=== PATIENT | male | born 1960 | race Caucasian/White ===

== ENCOUNTER 2021-06-20 10:34 | Outpatient (CLI) | payer OTHER ==
[2021-06-20 12:03] LABS: #Basophils 0.1 10x3/uL (0.0-0.2); #Eosinphils 0.2 10x3/uL (0.0-0.5); #Monocytes 0.5 10x3/uL (0.0-1.1); #Neutrophils 5.6 10x3/uL (1.5-8.4); %Basophils 0.6 % (0.0-2.0); %Eosinophils 2.2 % (0.0-6.0); %Lymphocytes 22.6 % (18.0-47.0); %Monocytes 6.5 % (0.0-10.0); %Neutrophils 67.9 % (40.0-75.0); Hemoglobin 13.9 g/dL (13.5-17.5); Mean Corpuscular HGB CONC 32.8 g/dL (32.0-36.0); Mean Corpuscular Hemoglobin 30.7 pg (27.0-33.0); Mean Corpuscular Volume 93.6 fl (81.2-95.1); Platelet Count 230 10x3/uL (150-450); RBC Distribution Width 13.8 % (11.5-14.5); Red Blood Cell (RBC) Count 4.53 10x6/uL (4.32-5.72); White Blood Cell (WBC) Count 8.3 10x3/uL (3.5-10.5)
[2021-06-20 12:26] LABS: ALT (SGPT) 28 U/L (8-55); AST (SGOT) 22 U/L (5-34); Alkaline Phosphatase 72 U/L (40-110); Anion Gap 12 mmol/L (10-20); BUN (Urea Nitrogen) 14 mg/dL (8.4-25.7); Bilirubin, Total 0.8 mg/dL (0.2-1.2); Calc. Creatinine Clearance 0 mL/min (70-130); Calcium 8.8 mg/dL (7.8-10.44); Carbon Dioxide 25 mmol/L (23-31); Chloride 108 mmol/L (98-107); Globulin 2.7 g/dL (2.4-3.5); Glucose 97 mg/dL (80-115); Potassium 4.4 mmol/L (3.5-5.1); Protein, Total 6.7 g/dL (5.8-8.1); Sodium 141 mmol/L (136-145)
[2021-06-21] LABS: SARS-CoV-2 PCR by NAA Not Detected (NotDetected)
== END 2021-06-20 10:35 | disposition home or self-care (01) ==
LOC: LABBT 10:34
PROVIDERS: ATTEND Internal Medicine Cardiovascular Disease
DX: Z01.812 Encounter for preprocedural laboratory examination (principal); R94.39 Abnormal result of other cardiovascular function study; Z20.822 Contact with and (suspected) exposure to COVID-19
CPT/HCPCS: 80053; 85025; U0003; U0005

== ENCOUNTER 2021-06-27 10:45 | Outpatient (CLI) | payer OTHER ==
[2021-06-27 20:20] LABS: SARS-CoV-2 PCR by NAA Not Detected (NotDetected)
== END 2021-06-27 10:46 | disposition home or self-care (01) ==
LOC: LABBT 10:45
PROVIDERS: ATTEND Internal Medicine Cardiovascular Disease
DX: Z01.812 Encounter for preprocedural laboratory examination (principal); R94.39 Abnormal result of other cardiovascular function study; Z20.822 Contact with and (suspected) exposure to COVID-19
CPT/HCPCS: U0003; U0005

== ENCOUNTER 2021-07-02 06:28 | Inpatient (IN) | payer OTHER ==
[2021-07-02] MEDS ORDERED: Lidocaine 1% (PF) 30 ML VIAL ONE (08:28)
[2021-07-02] MEDS ORDERED: Fentanyl 250 MCG/5 ML VIAL ONE (08:44)
[2021-07-02] MEDS ORDERED: Midazolam HCl 2 mg/2 ml Vial ONE (08:44)
[2021-07-02] MEDS ORDERED: Iopamidol 370 76% 100 ML VIAL ONE (09:02)
[2021-07-02] MEDS ORDERED: Loratadine 10 MG TAB PO PRN (13:44)
[2021-07-02] MEDS ORDERED: Acetaminophen/Codeine 30-300mg Tablet PO PRN ×2 (14:45)
[2021-07-02] MEDS ORDERED: Sodium Chloride 0.9% 1,000 ML IV SCH (14:45)
[2021-07-02] MEDS ORDERED: Nitroglycerin 0.4 MG TAB (25 Tab Bottle) SL PRN (14:45)
[2021-07-02] MEDS ORDERED: Communication Order-Pharmacy FS SCH (17:48)
[2021-07-02] MEDS ORDERED: Atorvastatin Calcium 20 MG TAB PO SCH (21:00)
[2021-07-02] MEDS ORDERED: Ezetimibe 10 MG TAB PO SCH (21:00)
[2021-07-02] MEDS ORDERED: Losartan 25 MG TAB PO SCH (21:00)
[2021-07-02] MEDS ORDERED: Aspirin 81 mg Enteric Coated Tablet PO SCH (21:00)
[2021-07-02] MEDS ORDERED: rOPINIRole HCl 0.25 MG TAB PO SCH (21:00)
[2021-07-03 00:24] LABS: SARS-CoV-2 NAA Rapid Test Not Detected (NotDetected)
[2021-07-03] MEDS ORDERED: Lidocaine 1% MPF 2 ML VIAL ONE (08:48)
[2021-07-03] MEDS ORDERED: Albumin 5% 0 ML ONE (08:49)
[2021-07-03] MEDS ORDERED: Heparin 10,000 UNITS/1 ML VIAL 30,000 UNITS in Sodium Chloride 0.9% 1,000 ML FS SCH (09:00)
[2021-07-03] MEDS ORDERED: Lidocaine 2% PF 5 ML VIAL ONE (09:16)
[2021-07-03] MEDS ORDERED: Midazolam HCl 5 mg/5 ml Vial ONE (09:38)
[2021-07-03] MEDS ORDERED: Fentanyl 250 MCG/5 ML VIAL ONE (09:38)
[2021-07-03] MEDS ORDERED: Dexmedetomidine 200 MCG/2 ML VIAL ONE (09:38)
[2021-07-03] MEDS ORDERED: ceFAZolin 2 GM/Dextrose 50 ML IVPB ONE (09:55)
[2021-07-03 10:00] LABS: #Basophils 0.1 thou/uL (0.0-0.2); #Eosinphils 0.1 thou/uL (0.0-0.7); #Lymphocytes 1.7 thou/uL (1.20-3.40); #Monocytes 0.5 thou/uL (0.11-0.59); #Neutrophils 5.2 thou/uL (1.40-6.50); %Basophils 0.7 % (0.0-1.0); %Eosinophils 1.9 % (0.0-10.0); %Lymphocytes 22.7 % (21.0-51.0); %Neutrophils 68.7 % (42.0-75.0); Hemoglobin 15.1 g/dL (14.0-18.0); Mean Corpuscular HGB CONC 34.2 g/dL (32.0-36.0); Mean Corpuscular Hemoglobin 32.9 pg (27.0-31.0); Mean Corpuscular Volume 95.9 fL (78.0-98.0); Mean Platelet Volume 8.3 fL (7.4-10.4); Platelet Count 191 thou/uL (130-400); RBC Distribution Width 13.1 % (11.5-14.5); White Blood Cell (WBC) Count 7.6 thou/uL (4.8-10.8)
[2021-07-03 10:27] LABS: ALT (SGPT) 33 U/L (8-55); AST (SGOT) 22 U/L (5-34); Albumin 4.1 g/dL (3.4-4.8); Alkaline Phosphatase 70 U/L (40-110); Anion Gap 9 mmol/L (10-20); BUN (Urea Nitrogen) 14 mg/dL (8.4-25.7); Bilirubin, Total 1.1 mg/dL (0.2-1.2); Calc. Creatinine Clearance 113 mL/min (70-130); Calcium 9.2 mg/dL (7.8-10.44); Carbon Dioxide 26 mmol/L (23-31); Chloride 105 mmol/L (98-107); Glucose 110 mg/dL (80-115); Potassium 4.4 mmol/L (3.5-5.1); Protein, Total 7.1 g/dL (5.8-8.1); Sodium 136 mmol/L (136-145)
[2021-07-03] MEDS ORDERED: Lidocaine 1% PF 5 ML VIAL ONE (10:31)
[2021-07-03] MEDS ORDERED: PROPOFOL 200 MG/20 ML VIAL ONE (10:31)
[2021-07-03] MEDS ORDERED: Papaverine 60 MG/2 ML VIAL ONE (10:31)
[2021-07-03] MEDS ORDERED: Heparin 30,000 units/30 ml VIAL ONE (10:31)
[2021-07-03] MEDS ORDERED: Protamine Sulfate 50 MG/5 ML VIAL ONE (10:31)
[2021-07-03] MEDS ORDERED: Thrombin 5000 UNITS/5 ML VIAL ONE (10:31)
[2021-07-03] MEDS ORDERED: Calcium Chloride 1 GM/10 ML Abboject SYRINGE ONE (10:31)
[2021-07-03] MEDS ORDERED: Norepinephrine 4 MG/4 ML VIAL ONE (10:31)
[2021-07-03] MEDS ORDERED: Glycopyrrolate 0.2 MG/ML 5 ML SYRINGE ONE (10:31)
[2021-07-03] MEDS ORDERED: Vecuronium 10 MG VIAL ONE (10:31)
[2021-07-03] MEDS ORDERED: Insulin Regular 300 UNITS/3 ML VIAL ONE (12:02)
[2021-07-03] MEDS ORDERED: Nitroglycerin 50 MG/250 ML BOT 250 ML IVPB PRN (12:40)
[2021-07-03] MEDS ORDERED: Mag-Al 1200 mg/1200 mg/30 ML UDCUP PO PRN (12:40)
[2021-07-03] MEDS ORDERED: Morphine 2 MG/ML VIAL SLOW IVP PRN (12:40)
[2021-07-03] MEDS ORDERED: Guaifenesin DM 100-10/5 ML UDCUP PO PRN (12:40)
[2021-07-03] MEDS ORDERED: Fentanyl 100 MCG/2 ML VIAL SLOW IVP PRN (12:40)
[2021-07-03] MEDS ORDERED: Ondansetron PF 4 MG/2 ML Vial IVP PRN (12:40)
[2021-07-03] MEDS ORDERED: Norepinephrine 8 MG/0.9% NS 250 ML IVPB PRN (12:40)
[2021-07-03] MEDS ORDERED: DOPamine 400 MG/D5W 250 ML 250 ML IVPB PRN (12:40)
[2021-07-03] MEDS ORDERED: Bisacodyl 5 MG TAB PO PRN (12:40)
[2021-07-03] MEDS ORDERED: niCARdipine 25 MG in Sodium Chloride 0.9% 250 ML 250 ML IVPB PRN (12:40)
[2021-07-03] MEDS ORDERED: Promethazine HCl 25 MG/ML VIAL IM PRN (12:40)
[2021-07-03] MEDS ORDERED: Acetaminophen 325 MG TAB PO PRN (12:40)
[2021-07-03] MEDS ORDERED: hydrALAZINE 20 MG/ML VIAL SLOW IVP PRN (12:40)
[2021-07-03] MEDS ORDERED: Post-Op Insulin Drip Protocol IVPB ONE (12:40)
[2021-07-03] MEDS ORDERED: Potassium Chloride 20 MEQ/100 ML PREMIX BAG IVPB PRN (12:40)
[2021-07-03] MEDS ORDERED: Bisacodyl 10 MG SUPP PR PRN (12:40)
[2021-07-03] MEDS ORDERED: Hetastarch 6% 500 ML 500 ML IVPB PRN (12:40)
[2021-07-03] MEDS ORDERED: Lantus 1000 UNITS/10 ML VIAL SC PRN (12:45)
[2021-07-03] MEDS ORDERED: Dextrose 5% in Water 1,000 ML IV PRN (12:45)
[2021-07-03] MEDS ORDERED: Dextrose 50% Abboject 50 ML SYRINGE SLOW IVP PRN (12:45)
[2021-07-03] MEDS ORDERED: HUMULIN R 100 UNITS in Sodium Chloride 0.9% 100 ML IVPB SCH (12:45)
[2021-07-03 13:15] LABS: Hemoglobin 14.4 g/dL (14.0-18.0); Mean Corpuscular Hemoglobin 31.7 pg (27.0-31.0); Mean Platelet Volume 7.8 fL (7.4-10.4); Platelet Count 224 thou/uL (130-400); RBC Distribution Width 13.1 % (11.5-14.5); Red Blood Cell (RBC) Count 4.53 mill/uL (4.70-6.10); White Blood Cell (WBC) Count 20.1 thou/uL (4.8-10.8)
[2021-07-03 13:23] LABS: INR-International Normal Ratio 1.2; PTT 24.2 sec (22.9-36.1)
[2021-07-03] MEDS: Lactated Ringer's 1,000 ML IV SCH ×2 (13:32→21:27)
[2021-07-03 13:33] LABS: Band 28 % (5-11); Glucose 108 mg/dL (80-115); Lymphocytes 13 % (21-51); MDiff Complete? YES; Monocytes 1 % (0-10); Neutrophil 54 % (42-75); Platelet Morphology Comment Appears Adequate; Polychromasia SLIGHT = 2-3 cells (100X) (0-2/hpf); Reactive Lymphocytes 4 % (0-10)
[2021-07-03 13:37] LABS: Anion Gap 13 mmol/L (10-20); BUN (Urea Nitrogen) 14 mg/dL (8.4-25.7); Calc. Creatinine Clearance 122 mL/min (70-130); Carbon Dioxide 18 mmol/L (23-31); Chloride 112 mmol/L (98-107); Glucose 108 mg/dL (80-115); Potassium 4.6 mmol/L (3.5-5.1); Sodium 138 mmol/L (136-145)
[2021-07-03 13:49] VITALS: BMI 35.9
[2021-07-03] MEDS: Ketorolac Tromethamine 30 MG/ML VIAL IVP SCH ×2 (13:57→21:18)
[2021-07-03] MEDS: rOPINIRole HCl 0.25 MG TAB PO SCH ×2 (15:05→20:22)
[2021-07-03] MEDS: Insulin Regular 300 UNITS/3 ML VIAL SC PRN ×2 (16:08→19:37)
[2021-07-03] MEDS: Fentanyl 100 MCG/2 ML VIAL SLOW IVP PRN ×2 (16:38→19:19)
[2021-07-03] MEDS: ceFAZolin 2 GM/Dextrose 50 ML 2 GM in Premix Bag 1 BAG IVPB SCH (17:41)
[2021-07-03 18:41] LABS: Hemoglobin 13.1 g/dL (14.0-18.0)
[2021-07-03 18:56] LABS: Potassium 4.7 mmol/L (3.5-5.1)
[2021-07-03] MEDS: Ezetimibe 10 MG TAB PO SCH (20:22)
[2021-07-03] MEDS ORDERED: Famotidine/PF 20 mg/2ml Vial SLOW IVP SCH (21:00)
[2021-07-03] MEDS ORDERED: Atorvastatin Calcium 20 MG TAB PO SCH (21:00)
[2021-07-04] MEDS: Insulin Regular 300 UNITS/3 ML VIAL SC PRN ×2 (00:07→05:06)
[2021-07-04] MEDS: HYDROcodone/Acetaminophen 5/325 mg Tablet PO PRN ×2 (00:21→05:18)
[2021-07-04] MEDS: Fentanyl 100 MCG/2 ML VIAL SLOW IVP PRN (01:57)
[2021-07-04] MEDS: ceFAZolin 2 GM/Dextrose 50 ML 2 GM in Premix Bag 1 BAG IVPB SCH ×2 (01:58→09:23)
[2021-07-04 04:10] LABS: #Lymphocytes 0.6 thou/uL (1.20-3.40); #Monocytes 0.6 thou/uL (0.11-0.59); #Neutrophils 11.5 thou/uL (1.40-6.50); %Eosinophils 0.1 % (0.0-10.0); %Lymphocytes 4.6 % (21.0-51.0); %Monocytes 4.5 % (0.0-10.0); %Neutrophils 90.8 % (42.0-75.0); Hemoglobin 11.9 g/dL (14.0-18.0); Mean Corpuscular HGB CONC 34.2 g/dL (32.0-36.0); Mean Corpuscular Hemoglobin 33.2 pg (27.0-31.0); Mean Platelet Volume 8.5 fL (7.4-10.4); Platelet Count 160 thou/uL (130-400); RBC Distribution Width 13.1 % (11.5-14.5); Red Blood Cell (RBC) Count 3.59 mill/uL (4.70-6.10); White Blood Cell (WBC) Count 12.7 thou/uL (4.8-10.8)
[2021-07-04 04:30] LABS: Anion Gap 12 mmol/L (10-20); BUN (Urea Nitrogen) 15 mg/dL (8.4-25.7); Calc. Creatinine Clearance 123 mL/min (70-130); Calcium 7.8 mg/dL (7.8-10.44); Carbon Dioxide 20 mmol/L (23-31); Chloride 107 mmol/L (98-107); Glucose 132 mg/dL (80-115); Magnesium 1.8 mg/dL (1.6-2.6); Potassium 4.3 mmol/L (3.5-5.1); Sodium 135 mmol/L (136-145)
[2021-07-04] MEDS: Ketorolac Tromethamine 30 MG/ML VIAL IVP SCH ×3 (05:05→21:26)
[2021-07-04 05:57] LABS: Glucose 136 mg/dL (80-115)
[2021-07-04] MEDS: Lactated Ringer's 1,000 ML IV SCH (07:41)
[2021-07-04] MEDS ORDERED: diphenhydrAMINE 25 MG CAP PO PRN (07:42)
[2021-07-04] MEDS ORDERED: Zolpidem Tartrate 5 MG TAB PO PRN (07:42)
[2021-07-04] MEDS ORDERED: Nitroglycerin 0.4 MG TAB (25 Tab Bottle) SL PRN (07:42)
[2021-07-04] MEDS ORDERED: Mineral Oil ENEMA PR PRN (07:42)
[2021-07-04] MEDS: Aspirin 325 mg Enteric Coated Tablet PO SCH (08:11)
[2021-07-04] MEDS: Famotidine 20 MG TAB PO SCH ×2 (08:11→21:33)
[2021-07-04] MEDS: Clopidogrel Bisulfate 75 MG TAB PO SCH (08:11)
[2021-07-04] MEDS: rOPINIRole HCl 0.25 MG TAB PO SCH ×3 (08:11→21:33)
[2021-07-04] MEDS: Furosemide 20 MG TAB PO SCH (08:11)
[2021-07-04] MEDS ORDERED: Aspirin 325 MG TAB PO SCH (09:00)
[2021-07-04] MEDS: Polyethylene Glycol 3350 17 GM Packet PO SCH (09:24)
[2021-07-04] MEDS: Atorvastatin Calcium 40 MG TAB PO SCH (21:33)
[2021-07-04] MEDS: Ezetimibe 10 MG TAB PO SCH (21:34)
[2021-07-05] MEDS: HYDROcodone/Acetaminophen 5/325 mg Tablet PO PRN (02:58)
[2021-07-05] MEDS: Ketorolac Tromethamine 30 MG/ML VIAL IVP SCH ×3 (06:57→21:38)
[2021-07-05] MEDS ORDERED: FLU VACC QS2021-22(6MOS UP)/PF 60 MCG/0.5 ML SYRINGE IM ONE (09:00)
[2021-07-05] MEDS: Aspirin 325 mg Enteric Coated Tablet PO SCH (09:04)
[2021-07-05] MEDS: Famotidine 20 MG TAB PO SCH ×2 (09:04→21:30)
[2021-07-05] MEDS: Furosemide 20 MG TAB PO SCH (09:04)
[2021-07-05] MEDS: Clopidogrel Bisulfate 75 MG TAB PO SCH (09:05)
[2021-07-05] MEDS: rOPINIRole HCl 0.25 MG TAB PO SCH ×3 (09:05→21:30)
[2021-07-05] MEDS: Polyethylene Glycol 3350 17 GM Packet PO SCH (09:07)
[2021-07-05] MEDS: Ezetimibe 10 MG TAB PO SCH (21:30)
[2021-07-05] MEDS: Atorvastatin Calcium 40 MG TAB PO SCH (21:31)
[2021-07-06] MEDS: Ketorolac Tromethamine 30 MG/ML VIAL IVP SCH ×2 (06:13→18:04)
[2021-07-06] MEDS: Furosemide 20 MG TAB PO SCH (09:48)
[2021-07-06] MEDS: Polyethylene Glycol 3350 17 GM Packet PO SCH (09:48)
[2021-07-06] MEDS: Famotidine 20 MG TAB PO SCH ×2 (09:48→21:14)
[2021-07-06] MEDS: Clopidogrel Bisulfate 75 MG TAB PO SCH (09:49)
[2021-07-06] MEDS: rOPINIRole HCl 0.25 MG TAB PO SCH ×3 (09:49→21:14)
[2021-07-06] MEDS: Aspirin 325 mg Enteric Coated Tablet PO SCH (10:06)
[2021-07-06] MEDS: Aspirin 81 mg Enteric Coated Tablet PO SCH (10:13)
[2021-07-06] MEDS: HYDROcodone/Acetaminophen 5/325 mg Tablet PO PRN (21:12)
[2021-07-06] MEDS: Atorvastatin Calcium 40 MG TAB PO SCH (21:13)
[2021-07-06] MEDS: Ezetimibe 10 MG TAB PO SCH (21:14)
[2021-07-07] MEDS: Furosemide 20 MG TAB PO SCH (08:48)
[2021-07-07] MEDS: Aspirin 81 mg Enteric Coated Tablet PO SCH (08:49)
[2021-07-07] MEDS: Famotidine 20 MG TAB PO SCH (08:49)
[2021-07-07] MEDS: Clopidogrel Bisulfate 75 MG TAB PO SCH (08:49)
[2021-07-07] MEDS: rOPINIRole HCl 0.25 MG TAB PO SCH ×2 (08:49→17:18)
[2021-07-07] MEDS: Polyethylene Glycol 3350 17 GM Packet PO SCH (09:03)
[2021-07-07 21:43] VITALS: BP 139/74; TEMP 98.1
[2021-07-08] MEDS ORDERED: Losartan 25 MG TAB PO SCH (09:00)
== END 2021-07-07 18:50 | disposition home or self-care (01) | DRG 234 ==
LOC: CCL 06:28 → 2NO 13:47 → CCU 07-03 08:54 → 2NO 07-04 13:22
PROVIDERS: ADMIT Internal Medicine Cardiovascular Disease; ATTEND Internal Medicine Cardiovascular Disease
PROC: 4A023N7 Measurement of Cardiac Sampling and Pressure, Left Heart, Percutaneous Approach (ICD-10-PCS; principal; 2021-07-02)
PROC: B2111ZZ Fluoroscopy of Multiple Coronary Arteries using Low Osmolar Contrast (ICD-10-PCS; 2021-07-02)
PROC: B2151ZZ Fluoroscopy of Left Heart using Low Osmolar Contrast (ICD-10-PCS; 2021-07-02)
PROC: 02100Z9 Bypass Coronary Artery, One Artery from Left Internal Mammary, Open Approach (ICD-10-PCS; 2021-07-03)
DX: I25.10 Atherosclerotic heart disease of native coronary artery without angina pectoris (principal); Z20.822 Contact with and (suspected) exposure to COVID-19; G25.81 Restless legs syndrome; E78.00 Pure hypercholesterolemia, unspecified; I10 Essential (primary) hypertension; R00.1 Bradycardia, unspecified; Z79.899 Other long term (current) drug therapy; Z85.820 Personal history of malignant melanoma of skin
CPT/HCPCS: 36415; 36416; 36430; 71045; 80053; 83735; 85025; 85610; 85730; 86850; 86900; 86901; 93005; 93010; 93458; 93798; 94640; 99152; 99153; C1713; J0690; J1265; J1642; J1644; J1815; J1885; J2001; J2250; J2440; J2704; J2720; J3010; J3370; J7120; J7620; P9045; Q9967; S0028; U0002

== ENCOUNTER 2023-02-03 13:07 | Outpatient (CLI) | payer MEDICARE | END 2023-02-03 13:08 | disposition home or self-care (01) | LOC: SCSMRI 13:07 | PROVIDERS: ATTEND Nurse Practitioner Family | DX: M51.16 Intervertebral disc disorders with radiculopathy, lumbar region (principal); M47.26 Other spondylosis with radiculopathy, lumbar region; M51.37 Other intervertebral disc degeneration, lumbosacral region; M51.35 Other intervertebral disc degeneration, thoracolumbar region | CPT/HCPCS: 72100; 72148 ==

== ENCOUNTER 2024-11-30 08:09 | Outpatient (CLI) | payer MEDICARE | END 2024-11-30 08:10 | disposition home or self-care (01) | LOC: SCSMRI 08:09 | PROVIDERS: ATTEND Nurse Practitioner Family | DX: M50.222 Other cervical disc displacement at C5-C6 level (principal); M50.121 Cervical disc disorder at C4-C5 level with radiculopathy; M50.122 Cervical disc disorder at C5-C6 level with radiculopathy; M48.03 Spinal stenosis, cervicothoracic region; I25.10 Atherosclerotic heart disease of native coronary artery without angina pectoris | CPT/HCPCS: 36415; 72141; 80053; 80061; 85025 ==